=== PATIENT | female | born 1990 | race Caucasian/White ===

== ENCOUNTER 2018-01-21 18:48 | Emergency (ER) | payer OTHER, BC ==
[~2018-01-21] VITALS: Ht 160 cm; Wt 100.6 kg
[2018-01-21 19:26] LABS: HEMATOCRIT 40.6 % (36.0-46.0); HEMOGLOBIN 14.1 G/DL (11.9-15.5); MCH 28.4 PG (29.0-34.0); MCHC 34.7 G/DL (30.0-36.0); MCV 81.9 FL (83-99); PLATELET COUNT 307 K/uL (156-360); RBC DIS.WIDTH-CV 13.1 % (11.8-14.6); RBC DIS.WIDTH-SD 38.7 % (39-53); RED BLOOD COUNT 4.96 M/uL (3.80-5.20); WHITE BLOOD COUNT 13.8 K/uL (4.1-10.2)
[2018-01-21 19:36] LABS: ALBUMIN 3.9 g/dL (3.2-4.8); CHLORIDE 109 mEq/L (99-109); SODIUM 139 mEq/L (136-147)
[2018-01-21 19:39] LABS: GLUCOSE 94 mg/dL (70-99); TOTAL PROTEIN 6.6 g/dL (6.4-8.3)
[2018-01-21 19:41] LABS: TOTAL BILIRUBIN 0.3 mg/dL (0.0-1.0)
[2018-01-21 19:42] LABS: ALKALINE PHOSPHATASE 65 IU/L (3-129); CREATININE 0.7 mg/dL (0.6-1.3); GFR ESTIMATE (CALCULATED) > 59 mL/min/
[2018-01-21 19:43] LABS: UREA NITROGEN (BUN) 11 mg/dL (9-23)
[2018-01-21 19:44] LABS: AST (GOT) 16 IU/L (2-34)
[2018-01-21 19:45] LABS: ALT (GPT) 17 IU/L (3-49)
[2018-01-21 19:51] LABS: QUANTITATIVE HCG 5719.5 MIU/ML
[2018-01-21 20:32] LABS: APPEARANCE SL.HAZY ((CLEAR)); BILIRUBIN NEGATIVE; BLOOD NEGATIVE; COLOR YELLOW ((YELLOW)); GLUCOSE (STRIP) NEGATIVE; KETONES 5; LEUKOCYTES SMALL; NITRITE NEGATIVE; PROTEIN (STRIP) NEGATIVE; SPECIFIC GRAVITY 1.021 (1.000-1.030); UROBILINOGEN 0.2 MG/DL (0.2-1.0)
[2018-01-21 20:50] LABS: BACTERIA RARE /HPF; EPITHELIAL CELLS 1+ /HPF; MUCUS TRACE /LPF; UCUL ADDED? NO; WHITE BLOOD CELLS 0-5 /HPF (0-5)
[2018-01-21 23:15] VITALS: BP 112/64
== END 2018-01-21 23:33 | disposition home or self-care (01) ==
LOC: EME → EDBD 18:48 → EME 23:33
PROVIDERS: Emergency Medicine
DX: O9A.211 Injury, poisoning and certain other consequences of external causes complicating pregnancy, first trimester (principal); S70.02XA Contusion of left hip, initial encounter; M79.602 Pain in left arm; M54.9 Dorsalgia, unspecified; R11.0 Nausea; V43.52XA Car driver injured in collision with other type car in traffic accident, initial encounter; Z3A.01 Less than 8 weeks gestation of pregnancy
CPT/HCPCS: 76801; 80053; 81003; 84702; 85027; 99281; 99285